=== PATIENT | male | born 1970 | race American Indian/Alaskan Native ===

== ENCOUNTER 2017-12-10 08:13 | Outpatient (CLI) | payer OTHER ==
--- NOTE | 2017-12-11 07:35 | Fluoroscopy Report ---
UPPER GI SERIES AND AIR-CONTRAST AND SMALL BOWEL FOLLOW-THROUGH HISTORY: Crohn's disease with enterocolic fistula. COMPARISON: None at this facility. FINDINGS: Tubular Splitting Machine Tender film of the abdomen demonstrates a normal bowel gas pattern. Multiple surgical sutures are identified in the right upper quadrant. Correlate with surgical history. 35 fluoroscopic images were captured during this exam. Deglutition is normal. The esophagus is normal caliber and mucosal pattern throughout. No mucosal lesion or stenosis. 1 or 2 episodes of mild gastroesophageal reflux to the mid esophagus was witnessed. There is normal filling of the gastric cavity. No mucosal defect or mass. The duodenal bulb is normal. There is a focal area of mucosal irregularity and mild narrowing in the descending duodenum consistent with a Crohn's lesion. This does not obstruct. There is however a large fistula from the descending duodenum which communicates with the adjacent small bowel loops in the right upper quadrant. This fistula is approximately 1 cm in length and 1 cm in diameter and is located 5 cm to the right of L2. There also appears to be at a second fistula near the same area in the right upper quadrant which descends inferiorly and also appears to communicate with a small bowel loop. Transit time of the contrast agent through the small bowel loops is mildly delayed at approximately 2 hours and 30 minutes. There are a a few moderately dilated loops of mid small bowel in the central abdomen which measure up to 5 cm in diameter. IMPRESSION: One, or possibly two, fistulas are identified in the right upper quadrant lateral to the L2 and L3 vertebral bodies as outlined above. The fistula appears to arise from the descending duodenum and communicates with adjacent small bowel loops. There is mild delay in transit of the contrast agent through the small bowel loops with a few moderately dilated loops of small bowel. Low grade partial obstruction could be considered. Mild gastroesophageal reflux.
== END 2017-12-10 08:14 | disposition home or self-care (01) ==
LOC: FLUORO 08:13
DX: K50.013 Crohn's disease of small intestine with fistula (principal); K21.9 Gastro-esophageal reflux disease without esophagitis
CPT/HCPCS: 74249